=== PATIENT | female | born 2000 | race Caucasian/White ===

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

== ENCOUNTER 2021-06-29 17:47 | Emergency (ER) | payer BC, OTHER ==
[~2021-06-29] VITALS: Ht 172.7 cm; Wt 114.0 kg
[~2021-06-29 17:47] MED LIST: CETI10TA74 PO; OMEP20CA16 PO; VENL225T PO; birth control PO
[2021-06-29 18:00] VITALS: BP 134/67
--- NOTE | 2021-06-29 18:44 | PHYS DOC ---
Past History Past Medical History: Depression, GERD Additional Past Medical Histor: seasonal allergies Past Surgical History: No Surgical History Smoking: Non-smoker Alcohol Use: None Drug Use: None General Adult EDM: Chief Complaint: CONGESTION HPI: HPI: Patient is a 20-year-old female that presents today with chest wall pain for the past 2 to 3 days and head ache x7 days. Patient states she had a Covid positive test about 3 weeks ago and since that time she has had headache for the last 7 days then starting 2 to 3 days ago she started having substernal chest pain it hurts worse when she moves her left arm or takes a deep breath. Patient does not personally have a history of blood clots such as DVTs or PEs but she states her mom is on chronic anticoagulation therapy for PE management. Patient denies shortness of air, fever, nausea or vomiting, or any bluing of her lips or tongue. Review of Systems: Review of Systems: Constitutional: Denies fever or chills Eyes: Denies change in visual acuity HENT: Denies nasal congestion or sore throat Respiratory: Denies cough or shortness of breath Cardiovascular: Chest wall pain GI: Denies abdominal pain, nausea, vomiting, bloody stools or diarrhea : Denies dysuria Musculoskeletal: Denies back pain or joint pain Neurology: Headache Integument: focal weakness or sensory changes Endocrine: Denies polyuria or polydipsia Lymphatic: Denies swollen glands Psychiatric: Denies depression or anxiety Allergies: Allergies: Allergies Coded Allergies Type Severity Reaction Last Updated Verified No Known Drug Allergies 10/02/19 No Physical Exam: PE: Constitutional: Well developed, well nourished, no acute distress, non-toxic appearance. [] HENT: Normocephalic, atraumatic, bilateral external ears normal, oropharynx moist, no oral exudates, nose normal. [] Eyes: PERRLA, EOMI, conjunctiva normal, no discharge. [] Neck: Normal range of motion, no tenderness, supple, no stridor. [] Cardiovascular:Heart rate regular rhythm, no murmur [] Lungs & Thorax: Bilateral breath sounds clear to auscultation, chest pain is reproducible with palpation to the chest wall and with movement of her left arm Abdomen: Bowel sounds normal, soft, no tenderness, no masses, no pulsatile masses. [] Skin: Warm, dry, no erythema, no rash. [] Back: No tenderness, no CVA tenderness. [] Extremities: No tenderness, no cyanosis, no clubbing, ROM intact, no edema. [] Neurologic: Alert and oriented X 3, normal motor function, normal sensory function, no focal deficits noted. [] Psychologic: Affect normal, judgement normal, mood normal. [] Current Patient Data: Labs: Laboratory Tests Test 06/29/21 18:40 06/29/21 19:35 06/29/21 19:43 White Blood Count 8.0 x10^3/uL Red Blood Count 4.56 x10^6/uL Hemoglobin 12.2 g/dL Hematocrit 36.8 % Mean Corpuscular Volume 81 fL Mean Corpuscular Hemoglobin 27 pg Mean Corpuscular Hemoglobin Concent 33 g/dL Red Cell Distribution Width 13.4 % Platelet Count 307 x10^3/uL Neutrophils (%) (Auto) 64 % Lymphocytes (%) (Auto) 24 % Monocytes (%) (Auto) 8 % Eosinophils (%) (Auto) 3 % Basophils (%) (Auto) 1 % Neutrophils # (Auto) 5.2 x10^3uL Lymphocytes # (Auto) 2.0 x10^3/uL Monocytes # (Auto) 0.6 x10^3/uL Eosinophils # (Auto) 0.3 x10^3/uL Basophils # (Auto) 0.1 x10^3/uL D-Dimer (Christina) 3.65 mg/L Sodium Level 141 mmol/L Potassium Level 4.2 mmol/L Chloride Level 104 mmol/L Carbon Dioxide Level 27 mmol/L Anion Gap 10 Blood Urea Nitrogen 8 mg/dL Creatinine 0.8 mg/dL Estimated GFR (Cockcroft-Gault) 91.4 BUN/Creatinine Ratio 10 Glucose Level 81 mg/dL Calcium Level 9.0 mg/dL Total Bilirubin 0.4 mg/dL Aspartate Amino Transf (AST/SGOT) 12 U/L Alanine Aminotransferase (ALT/SGPT) 18 U/L Alkaline Phosphatase 101 U/L Troponin I High Sensitivity 6 ng/L Total Protein 7.4 g/dL Albumin 3.9 g/dL Albumin/Globulin Ratio 1.1 Urine Collection Type Clean catch Urine Color Yellow Urine Clarity Clear Urine pH 7.0 Urine Specific [place] 1.020 Urine Protein Neg Urine Glucose (UA) Neg mg/dL Urine Ketones (Stick) Neg mg/dL Urine Blood Neg Urine Nitrite Neg Urine Bilirubin Neg Urine Urobilinogen Dipstick 1.0 mg/dL Urine Leukocyte Esterase Small Urine RBC 0 /HPF Urine WBC 5-10 /HPF Urine Squamous Epithelial Cells Many /LPF Urine Bacteria Mod /HPF Bedside Urine HCG, Qualitative hcg negative Current Medications Medications (Trade) Dose Ordered Sig/Yakov Route PRN Reason Start Time Stop Time Status Last Admin Dose Admin Iohexol (Omnipaque 350 Mg/ml) 100 ml 1X ONCE IV 06/29/21 20:15 06/29/21 20:18 DC 06/29/21 20:25 Vital Signs: Vital Signs Date Time Temp Pulse Resp B/P (MAP) Pulse Ox O2 Delivery O2 Flow Rate FiO2 06/29/21 18:00 98.2 80 14 134/67 (89) 100 Room Air 06/29/21 18:00 98.2 80 134/67 (89) 100 Vital Signs Date Time Temp Pulse Resp B/P (MAP) Pulse Ox O2 Delivery O2 Flow Rate FiO2 06/29/21 18:00 98.2 80 14 134/67 (89) 100 Room Air 06/29/21 18:00 98.2 80 134/67 (89) 100 EKG: EKG: EKG done at [address] Kaiser at 1812 shows sinus rhythm with no ectopy at a rate of 76 with a AK interval of 124 ms with a QTC of 416 and no STEMI [] Radiology/Procedures: Radiology/Procedures: REASON: elevated ddimer, chest pain Omni 350 100cc PROCEDURE: CT ANGIOGRAPHY CHEST CTA CHEST History: Elevated d-dimer, chest pain. Rule out PE. Comparison: None. Technique: CTA of the pulmonary arteries with intravenous contrast. 3-D postproc essing was performed. Findings: Pulmonary arteries: No pulmonary embolism. Aorta and great vessels: No aneurysm or dissection of the aortic arch or thoracic aorta. Thyroid: No significant abnormalities. Mediastinum and qiana: No mediastinal masses or adenopathy is seen. Esophagus: The visualized esophagus is normal. Heart: The heart is normal in size. There is no pericardial effusion. Airways, Lungs, Pleura: Airways are clear. No airspace consolidation, pleural effusion or pneumothorax. Upper abdomen: Limited evaluation of the upper abdomen is unremarkable. Osseous structures and soft tissues: Within normal limits for age. Impression: 1. No pulmonary embolism, aortic aneurysm or aortic dissection. ------ Exposure: One or more of the following individualized dose reduction techniques were utilized for this examination: 1. Automated exposure control 2. Adjustment of the mA and/or kV according to patient size 3. Use of iterative reconstruction technique. Electronically signed by: Renato Chisholm MD (06/29/2021 8:53 PM) [facility][] Heart Score: C/O Chest Pain: N/A Risk Factors: Risk Factors: DM, Current or recent (<one month) smoker, HTN, HLP, family history of CAD, obesity. Risk Scores: Score 0 - 3: 2.5% MACE over next 6 weeks - Discharge Home Score 4 - 6: 20.3% MACE over next 6 weeks - Admit for Clinical Observation Score 7 - 10: 72.7% MACE over next 6 weeks - Early Invasive Strategies Course & Med Decision Making: Course & Med Decision Making Pertinent Labs and Imaging studies reviewed. (See chart for details) 2104 did review radiological and laboratory results with patient. Did inform her that we did not find anything acute process in her chest. Patient also states that she has a headache and that she was being managed by neurology but she has not followed up with neurology since COVID-19, I did inform her that she will need to follow-up with neurology for further management that if she was already being chronically taken care of for that. Patient also was informed that she did have a urinary tract infection she will be given some Macrobid twice daily for 7 days for that. She is to follow-up with her primary care physician if she continues to have shortness of breath related to her Covid infection from 3 weeks ago. Patient verbalized understanding is agreeable to the plan of care. Dragon Disclaimer: Dragon Disclaimer: This electronic medical record was generated, in whole or in part, using a voice recognition dictation system. Departure Departure: Impression: Primary Impression: Chest wall pain Additional Impressions: Head ache Qualified Codes: R51.9 - Headache, unspecified UTI (urinary tract infection) Qualified Codes: N30.00 - Acute cystitis without hematuria Disposition: HOME / SELF CARE / HOMELESS Condition: STABLE Referrals: JOSÉ LUIS VASQUEZ MD (PCP) Patient Instructions: Chest Pain (Nonspecific), General Headache Without Cause, Urinary Tract Infection Additional Instructions: Macrobid take 1 tablet twice daily for 7 full days Follow-up with your primary care physician in the next 5 to 7 days if her symptoms are not improved especially her headache and you are chest wall pain. Return to the emergency department for increased pain in your chest, increased shortness of air or increased work of breathing, fever, or bluing of your lips or face. Tylenol and/or ibuprofen as needed for pain. Scripts Nitrofurantoin Monohyd/M-Cryst (MACROBID 100 MG CAPSULE) 100 Mg Capsule 100 CAP PO BID for UTI for 7 Days, #14 CAP Prov: CHARLEE JOYA WOOD HEEL ATTACHER 06/29/21 CHARLEE JOYA WOOD HEEL ATTACHER Jun 29, 2021 18:43
[2021-06-29 19:09] LABS: BASO # 0.1 x10^3/uL (0.0-0.2); BASO % 1 % (0-3); EOS # 0.3 x10^3/uL (0.0-0.7); EOS % 3 % (0-3); HEMATOCRIT 36.8 % (36.0-47.0); HEMOGLOBIN 12.2 g/dL (12.0-15.5); LYMPH % 24 % (24-48); MEAN CORPUSCULAR HEMOGLOBIN 27 pg (25-35); MEAN CORPUSCULAR HGB CONC 33 g/dL (31-37); MEAN CORPUSCULAR VOLUME 81 fL (79-100); MONO # 0.6 x10^3/uL (0.0-1.1); MONO % 8 % (0-9); NEUT # 5.2 x10^3uL (1.8-7.7); NEUT % 64 % (31-73); PLATELET COUNT 307 x10^3/uL (140-400); RED BLOOD COUNT 4.56 x10^6/uL (3.50-5.40); RED CELL DISTRIBUTION WIDTH 13.4 % (11.5-14.5)
[2021-06-29 19:19] LABS: CREATININE 0.8 mg/dL (0.6-1.0); GFR 91.4; POTASSIUM 4.2 mmol/L (3.5-5.1)
[2021-06-29 19:25] LABS: ALBUMIN 3.9 g/dL (3.4-5.0); ALBUMIN/GLOBULIN RATIO 1.1 (1.0-1.7); TOTAL BILIRUBIN 0.4 mg/dL (0.2-1.0); TOTAL PROTEIN 7.4 g/dL (6.4-8.2)
--- NOTE | 2021-06-29 19:51 | EKG ---
[address] [address] Test Date: 2021-06-29 Test Time: 18:09:12 Pat Name: SANDI FATIMA Department: Room: Gender: F Control Systems Specialist: ONEIL : 2000 Requested By: CHARLEE JOYA Order Number: [id number] Reading MD: Scott Guardado Measurements Intervals [place] Rate: 76 P: 34 DE: 124 QRS: 36 QRSD: 86 T: 30 QT: 370 QTc: 416 Interpretive Statements SINUS RHYTHM NORMAL ECG Electronically Signed On 07-01-2021 19:38:17 [employer]PLANE [employer]OVERER by Scott Guardado
[2021-06-29] MEDS ORDERED: IOHEXOL 350 MG/ML 100 ML VIAL. IV ONE (20:15)
[2021-06-29 20:16] LABS: BILIRUBIN,URINE NEG (NEG); CLARITY,URINE CLEAR; COLOR,URINE YELLOW; GLUCOSE,URINE NEG (NEG); NITRITE,URINE NEG (NEG); RBC,URINE 0 /HPF (0-2)
[2021-06-29 20:17] LABS: BACTERIA,URINE MOD /HPF (0-FEW); SQUAMOUS EPITHELIAL CELL,UR MANY /LPF
--- NOTE | 2021-06-29 20:56 | RAD ---
CTA CHEST History: Elevated d-dimer, chest pain. Rule out PE. Comparison: None. Technique: CTA of the pulmonary arteries with intravenous contrast. 3-D postprocessing was performed. Findings: Pulmonary arteries: No pulmonary embolism. Aorta and great vessels: No aneurysm or dissection of the aortic arch or thoracic aorta. Thyroid: No significant abnormalities. Mediastinum and qiana: No mediastinal masses or adenopathy is seen. Esophagus: The visualized esophagus is normal. Heart: The heart is normal in size. There is no pericardial effusion. Airways, Lungs, Pleura: Airways are clear. No airspace consolidation, pleural effusion or pneumothora x. Upper abdomen: Limited evaluation of the upper abdomen is unremarkable. Osseous structures and soft tissues: Within normal limits for age. Impression: 1. No pulmonary embolism, aortic aneurysm or aortic dissection. ------ Exposure: One or more of the following individualized dose reduction techniques were utilized for thi s examination: 1. Automated exposure control 2. Adjustment of the mA and/or kV according to patient size 3. Use of iterative reconstruction technique. Electronically signed by: Renato Chisholm MD (06/29/2021 8:53 PM) [facility]
[2021-06-29] MEDS ORDERED: NITR100C62 PO (21:12)
[2021-06-29] MEDS ORDERED: NITROFURANTOIN MONOHYD/M-CRYST 100 MG CAPSULE. PO ONE ×2 (21:15→21:16)
== END 2021-06-29 21:20 | disposition home or self-care (01) ==
LOC: ER 17:47
DX: N30.00 Acute cystitis without hematuria (principal); R07.2 Precordial pain; R51.9 Headache, unspecified; K21.9 Gastro-esophageal reflux disease without esophagitis; F32.9 Major depressive disorder, single episode, unspecified
CPT/HCPCS: 36415; 71275; 80053; 81001; 81025; 84484; 85025; 85379; 87086; 93005; 99285; Q9967

== ENCOUNTER → 2021-10-19 | Outpatient (CLI) | payer OTHER, BC ==
[~2021-10-19] MED LIST changes: +NITR100C62 PO
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
== END ==
LOC: RAD 14:43
PROVIDERS: ATTEND Physician Assistant
DX: M54.2 Cervicalgia (principal)
CPT/HCPCS: 72040